=== PATIENT | male | born 1960 | race Caucasian/White ===

== ENCOUNTER 2019-12-01 06:26 | Day surgery (SDC) | payer BC, OTHER ==
[2019-12-01] MEDS ORDERED: Lactated Ringers 1,000 ML IV SCH (07:00)
[2019-12-01] MEDS ORDERED: Sodium Chloride 0.9% 10 ML Syringe FLUSH PRN (07:00)
[2019-12-01] MEDS ORDERED: fentaNYL 100 MCG/2 ML SDV ONE (08:04)
[2019-12-01] MEDS ORDERED: Propofol 200 MG/20 ML SDV ONE ×2 (08:04→08:17)
--- NOTE | 2019-12-01 14:17 | OR ---
DATE OF SURGERY: 12/01/2019. REFERRING PROVIDER: Delbert Dangelo M.D. PRE-OPERATIVE DIAGNOSES: History of colon polyps. Last colonoscopy in 06/2014 was normal. He did have 5 adenomas taken out in 2009. There is no known family history of colon cancer. POST-OPERATIVE DIAGNOSES: 1. 2 mm polyp at 140 cm, removed with cold forceps. 2. Mild left-sided diverticulosis. PROCEDURE: Colonoscopy with polypectomy x1 using cold forceps. SURGEON: Oli Mckinney M.D. ANESTHESIA: Monitored anesthesia care. BOWEL PREP: Good. Jr is a 59-year-old male was brought to the endoscopy suite after discussing risks and benefits of the procedure. Informed consent was obtained for conscious sedation and colonoscopy with or without biopsy and/or polypectomy. We also discussed possibility of missed lesions. Pre-procedure exam was unremarkable. IV, oxygen, and monitors were placed. The patient was placed in the left lateral decubitus position. Sedation was administered and a digital rectal exam was performed and was unremarkable. Colonoscope was passed into the rectum and slowly advanced all the way to the cecum. Cecum was viewed and photographed. The colonoscope was slowly withdrawn and the mucosa was closed observed in a direct circumferential manner. The ascending colon revealed 2 mm polyp at 140 cm, removed with cold forceps. The transverse colon was unremarkable. The descending colon and sigmoid colon revealed some mild diverticulosis. Retroflexion was performed and rectal mucosa was unremarkable. Scope was removed. The patient tolerated the procedure well. The patient was monitored until that baseline status. Discharge instructions were reviewed and the patient was discharged in good condition. COMPLICATIONS: None. TOTAL TIME: 14 minutes. ESTIMATED BLOOD LOSS: Less than 1 mL. RECOMMENDATIONS/FOLLOW-UP: We will await results of path report to determine ideal followup interval. I will have the patient hold his aspirin for 3 days to limit any chance of bleeding. I would like to kindly thank Dr. Dangelo for this referral. DMB: 12/01/2019 08:46:54 MODL: 12/01/2019 14:09:12 /[id number]
== END 2019-12-01 09:30 | disposition home or self-care (01) ==
LOC: VM.SDS 06:26
PROVIDERS: ATTEND Family Medicine
DX: Z12.11 Encounter for screening for malignant neoplasm of colon (principal); D12.2 Benign neoplasm of ascending colon; K57.30 Diverticulosis of large intestine without perforation or abscess without bleeding; I12.9 Hypertensive chronic kidney disease with stage 1 through stage 4 chronic kidney disease, or unspecified chronic kidney disease; N18.3 Chronic kidney disease, stage 3 (moderate); E78.5 Hyperlipidemia, unspecified; G40.009 Localization-related (focal) (partial) idiopathic epilepsy and epileptic syndromes with seizures of localized onset, not intractable, without status epilepticus; N28.1 Cyst of kidney, acquired; I70.0 Atherosclerosis of aorta; N40.1 Benign prostatic hyperplasia with lower urinary tract symptoms; R35.1 Nocturia; K02.9 Dental caries, unspecified; H83.3X3 Noise effects on inner ear, bilateral; N17.9 Acute kidney failure, unspecified; Z79.82 Long term (current) use of aspirin; Z79.899 Other long term (current) drug therapy; Z86.010 Personal history of colon polyps; Z87.891 Personal history of nicotine dependence
CPT/HCPCS: J2704; J3010; J7120

== ENCOUNTER 2024-01-12 12:36 | Emergency (ER) | payer MEDICARE, OTHER ==
[2024-01-12] MEDS: Lidocaine 1% 30 ML SDV INJECT ONE (13:02)
[2024-01-12] MEDS: Diphtheria,Pertussis(Acell),Tetanus Vaccine 0.5 ML Syringe IM ONE (13:02)
== END 2024-01-12 13:45 | disposition home or self-care (01) ==
LOC: VM.ED 12:36
DX: S41.111A Laceration without foreign body of right upper arm, initial encounter (principal); E78.00 Pure hypercholesterolemia, unspecified; I12.9 Hypertensive chronic kidney disease with stage 1 through stage 4 chronic kidney disease, or unspecified chronic kidney disease; N18.9 Chronic kidney disease, unspecified; Z87.891 Personal history of nicotine dependence; Z79.82 Long term (current) use of aspirin; Z79.899 Other long term (current) drug therapy; W26.8XXA Contact with other sharp object(s), not elsewhere classified, initial encounter
CPT/HCPCS: 12004; 90471; 90715; 99282-25; 99283; J3490

== ENCOUNTER 2025-02-23 07:40 | Day surgery (SDC) | payer MEDICARE, OTHER ==
[2025-02-23] MEDS: Lactated Ringers 1,000 ML IV SCH (07:54)
[2025-02-23] MEDS ORDERED: fentaNYL 100 MCG/2 ML SDV ONE (08:33)
[2025-02-23] MEDS ORDERED: Midazolam 1 MG/ML 2 ML SDV ONE (08:33)
[2025-02-23] MEDS ORDERED: Propofol 200 MG/20 ML SDV ONE ×2 (08:33→09:49)
== END 2025-02-23 10:55 | disposition home or self-care (01) ==
LOC: VM.SDS 07:40
PROVIDERS: ATTEND Family Medicine
DX: Z12.11 Encounter for screening for malignant neoplasm of colon (principal); D12.0 Benign neoplasm of cecum; D12.6 Benign neoplasm of colon, unspecified; I12.9 Hypertensive chronic kidney disease with stage 1 through stage 4 chronic kidney disease, or unspecified chronic kidney disease; N18.32 Chronic kidney disease, stage 3b; E78.5 Hyperlipidemia, unspecified; G40.909 Epilepsy, unspecified, not intractable, without status epilepticus; Z86.0101 Personal history of adenomatous and serrated colon polyps; Z87.891 Personal history of nicotine dependence; Z79.899 Other long term (current) drug therapy
CPT/HCPCS: 00811; 88305; J2250; J2704; J3010; J7120